=== PATIENT | female | born 1995 | race Caucasian/White ===

== ENCOUNTER 2022-01-24 09:45 | Emergency (ER) | payer OTHER ==
[~2022-01-24] VITALS: Ht 160 cm; Wt 59.0 kg
[2022-01-24 10:17] VITALS: BP_SYST 152
[2022-01-24 10:48] VITALS: BP_SYST 152
== END 2022-01-24 10:48 | disposition home or self-care (01) ==
LOC: SED 09:45
DX: F43.0 Acute stress reaction (principal)
CPT/HCPCS: 99281